=== PATIENT | female | born 1960 | race Caucasian/White ===

== ENCOUNTER → 2016-06-27 | Outpatient (CLI) | payer OTHER ==
[~2016-06-27] MED LIST: EFFSR75 PO; EST1 PO; FERR325T74 PO; IMT100 PO; LORA-741 PO; PRT40 PO; ZOLP10TA PO
--- NOTE | 2016-06-27 15:40 | MAMMOGRAPHY REPORT ---
BILATERAL DIGITAL SCREENING MAMMOGRAM TOMOSYNTHESIS WITH CAD: 06/27/2016 CLINICAL HISTORY: Routine screening. Patient has no complaints. TECHNIQUE: Breast tomosynthesis in addition to standard 2D mammography was performed. Current study was also evaluated with a Computer Aided Detection (CAD) system. COMPARISON: Comparison is made to exams dated: 11/23/2013 mammogram, 10/29/2012 mammogram, 10/29/2011 mammogram, 10/25/2010 mammogram - [facility], 09/07/2008, and 08/17/2007. BREAST COMPOSITION: The tissue of both breasts is heterogeneously dense, which may obscure small ma sses. FINDINGS: No suspicious masses, calcifications, or areas of architectural distortion are noted in e ither breast. There has been no significant interval change compared to prior exams. IMPRESSION: ACR BI-RADS CATEGORY 1: NEGATIVE There is no mammographic evidence of malignancy. A 1 year screening mammogram is recommended. The p atient will receive written notification of the results. Approximately 10% of breast cancers are not detected with mammography. A negative mammographic repor t should not delay biopsy if a clinically suggestive mass is present. Rosanne Hernandez M.D. ah/:06/27/2016 15:23:26 Cap Sizer: Yamilet SOL(Odilon)(Debbie), [facility] letter sent: Normal 1/2 BI-RADS Code: ACR BI-RADS Category 1: Negative
== END | disposition home or self-care (01) ==
LOC: C.MAMM 08:59
PROVIDERS: ATTEND Family Medicine
DX: Z12.31 Encounter for screening mammogram for malignant neoplasm of breast (principal)

== ENCOUNTER 2016-06-29 15:16 | Emergency (ER) | payer OTHER ==
[~2016-06-29] VITALS: Ht 172.7 cm; Wt 94.8 kg
[2016-06-29 15:22] VITALS: TEMP 36.7; Ht 172.7 cm; Wt 94.8 kg
[2016-06-29] MEDS ORDERED: SODIUM CHLORIDE 0.9% 1000ML 1,000 ML IV STA (16:10)
[2016-06-29] MEDS ORDERED: DiphenhydrAMINE HCL 50 MG/ML VIAL IV STA (16:10)
[2016-06-29] MEDS ORDERED: KETOROLAC TROMETHAMINE 30 MG/ML VIAL IV STA (16:10)
[2016-06-29] MEDS ORDERED: PROCHLORPERAZINE 5 MG/ML 2 ML VIAL IV STA (16:10)
--- NOTE | 2016-06-29 16:11 | EMERGENCY ROOM VISIT NOTE ---
History Report prepared by Hardy: Edward Cheema Under the Supervision of: Dr. Ang Dexter M.D. First contact with patient: 15:56 Chief Complaint: HEAD PAIN Stated Complaint: PULSE SENSATION IN HEAD, DIZZY, NAUSEA, WEAKNESS History of Present Illness The patient is a 55 year old female who presents to the Emergency Room with complaints of persistent head discomfort for the past 3 days. The patient describes the discomfort as pulses and shocks in her head. She notes that when she feels these weird sensations, they sometimes cause slight vision changes. The patient also complains of feeling sweaty, nauseous, vomiting and dizzy. The patient has a history of migraines, but she notes that she is not having a migraine right now. She does note a slight headache, but states that this headache feels different than her typical migraine. The patient notes that this is not the worst headache of her life. Source of History: patient Onset: 3 days ago Position: head Quality: other (pulses and shocks) Timing: other (persistent) Associated Symptoms: + diaphoresis, + headache, + nausea, + vomiting Note: Other associated symptoms: vision changes, dizzy Review of Systems See HPI for pertinent positives & negatives. A total of 10 systems reviewed and were otherwise negative. Past Medical & Surgical Medical Problems: (1) Cervicalgia (2) Cystic Kidney Disease, Unspecified (3) Depressive Disorder Nec (4) Insomnia, Unspecified Family History Cancer Social History Smoking Status: Never Smoker Alcohol Use: occasionally Marital Status: Housing Status: lives with family Occupation Status: employed Current/Historical Medications Scheduled Estradiol (Estradiol), 1 MG PO DAILY Pantoprazole (Pantoprazole Sodium), 40 MG PO BID Sumatriptan Succinate (Imitrex), 100 MG PO PRN Venlafaxine Hcl (Effexor Extended Rel), 75 MG PO DAILY Zolpidem Tartrate (Ambien), 10 MG PO HS Scheduled PRN Lorazepam (Ativan), 0.5 MG PO DAILY PRN for Anxiety Allergies Coded Allergies: No Known Allergies (Unverified , 06/29/16) Physical Exam Vital Signs Date Time Temp Pulse Resp B/P Pulse Ox O2 Delivery O2 Flow Rate FiO2 06/29/16 17:32 80 20 134/83 100 06/29/16 16:32 93 20 153/94 100 06/29/16 16:15 99 Room Air 06/29/16 16:14 99 Room Air 06/29/16 15:37 90 06/29/16 15:28 84 20 134/95 98 90 159/95 99 138/95 06/29/16 15:22 36.7 92 18 129/88 99 Room Air Physical Exam GENERAL: Patient is a healthy-appearing well-nourished HEAD: Normocephalic atraumatic EYES: Ocular movements intact pupils equal and react to light OROPHARYNX mucous membranes are moist no exudates present no erythema or edema present NECK: Supple no nuchal rigidity CHEST: Good equal expansion LUNGS: Clear and equal to auscultation CARDIAC: Normal S1 and S2 ABDOMEN: Soft nontender no guarding BACK: No CVA tenderness EXTREMITIES: No pain upon palpation normal muscle strength in all groups no clubbing cyanosis or edema NEURO: Patient is following commands is answering questions appropriately. Alert and oriented x3 Cranial Nerves 2-12 grossly intact. No evidence of encephalitis or meningitis on exam. Medical Decision & Procedures ER Provider Diagnostic Interpretation: CT results as stated below per my review and radiologist interpretation: CT SCAN OF THE BRAIN WITHOUT IV CONTRAST CLINICAL HISTORY: Headache. Dizziness. COMPARISON STUDY: CT of the brain dated 06/17/2014. TECHNIQUE: Unenhanced axial CT scan of the brain is performed from the vertex to the skull base. Automated dose control exposure was utilized. CT DOSE: 569.73 mGy.cm FINDINGS: Brain parenchyma: The brain parenchyma is normal in appearance. There is no hemorrhage, mass effect, or evidence of acute territorial ischemia by CT criteria. Dick-white matter is preserved. No extra-axial fluid collection is seen. Ventricles, sulci, cisterns: Normal in configuration. Intracranial vasculature: The visualized intracranial vasculature at the skull base is normal in appearance. Calvarium: Unremarkable. Sinuses and mastoids: The visualized paranasal sinuses are clear. There is evidence of previous right mastoid surgery. The mastoid air cells are well pneumatized. Orbits: The bony orbits are grossly intact. IMPRESSION: No acute intracranial abnormality. Electronically signed by: Alfred Gayle M.D. 06/29/2016 4:48 PM Dictated Date/Time: 06/29/2016 4:46 PM Laboratory Results 06/29/16 15:55 Red Blood Count 4.66, Mean Corpuscular Volume 90.1, Mean Corpuscular Hemoglobin 29.0, Mean Corpuscular Hemoglobin Concent 32.1, Mean Platelet Volume 10.3, Neutrophils (%) (Auto) 56.2, Lymphocytes (%) (Auto) 36.6, Monocytes (%) (Auto) 5.2, Eosinophils (%) (Auto) 1.3, Basophils (%) (Auto) 0.4, Neutrophils # (Auto) 4.49, Lymphocytes # (Auto) 2.91, Monocytes # (Auto) 0.41, Eosinophils # (Auto) 0.10, Basophils # (Auto) 0.03 06/29/16 15:55 Test 06/29/16 15:55 06/29/16 16:17 06/29/16 16:26 06/29/16 17:15 White Blood Count 7.96 K/uL (4.8-10.8) Red Blood Count 4.66 M/uL (4.2-5.4) Hemoglobin 13.5 g/dL (12.0-16.0) Hematocrit 42.0 % (37-47) Mean Corpuscular Volume 90.1 fL (80-100) Mean Corpuscular Hemoglobin 29.0 pg (25-34) Mean Corpuscular Hemoglobin Concent 32.1 g/dl (32-36) Platelet Count 282 K/uL (130-400) Mean Platelet Volume 10.3 fL (7.4-10.4) Neutrophils (%) (Auto) 56.2 % Lymphocytes (%) (Auto) 36.6 % Monocytes (%) (Auto) 5.2 % Eosinophils (%) (Auto) 1.3 % Basophils (%) (Auto) 0.4 % Neutrophils # (Auto) 4.49 K/uL (1.4-6.5) Lymphocytes # (Auto) 2.91 K/uL (1.2-3.4) Monocytes # (Auto) 0.41 K/uL (0.11-0.59) Eosinophils # (Auto) 0.10 K/uL (0-0.5) Basophils # (Auto) 0.03 K/uL (0-0.2) RDW Standard Deviation 42.1 fL (36.4-46.3) RDW Coefficient of Variation 12.8 % (11.5-14.5) Immature Granulocyte % (Auto) 0.3 % Immature Granulocyte # (Auto) 0.02 K/uL (0.00-0.02) Anion Gap 8.0 mmol/L (3-11) Est Creatinine Clear Calc Drug Dose 111.9 ml/min Estimated GFR () 114.6 Estimated GFR (Non- 98.9 BUN/Creatinine Ratio 20.5 (10-20) Calcium Level 9.0 mg/dl (8.5-10.1) Total Bilirubin 0.3 mg/dl (0.2-1) Direct Bilirubin mg/dl (0-0.2) Aspartate Amino Transf (AST/SGOT) 20 U/L (15-37) Alanine Aminotransferase (ALT/SGPT) 19 U/L (12-78) Alkaline Phosphatase 71 U/L (45-117) Total Protein 7.9 gm/dl (6.4-8.2) Albumin 4.0 gm/dl (3.4-5.0) Thyroid Stimulating Hormone (TSH) 1.830 uIu/ml (0.300-4.500) Chemistry Specimen Hemolysis Bedside Glucose 78 mg/dl (70-90) Lyme Disease IgG Antibody NEG (NEG) Lyme Disease IgM Antibody NEG (NEG) Urine Color YELLOW Urine Appearance CLEAR (CLEAR) Urine pH 7.0 (4.5-7.5) Urine Specific [place] 1.004 (1.000-1.030) Urine Protein NEG (NEG) Urine Glucose (UA) NEG (NEG) Urine Ketones NEG (NEG) Urine Occult Blood NEG (NEG) Urine Nitrite NEG (NEG) Urine Bilirubin NEG (NEG) Urine Urobilinogen NEG (NEG) Urine Leukocyte Esterase NEG (NEG) Labs reviewed by ED physician. Medications Administered Medications (Trade) Dose Ordered Sig/Manny Route Start Time Stop Time Status Last Admin Dose Admin Sodium Chloride (Nss 1000ml) 1,000 ml @ 999 mls/hr Q1H1M STAT IV 06/29/16 16:10 06/29/16 17:10 DC 06/29/16 16:18 999 MLS/HR Ketorolac Tromethamine (Toradol Inj) 30 mg NOW STAT IV 06/29/16 16:10 06/29/16 16:12 DC 06/29/16 16:24 30 MG Prochlorperazine Edisylate (Compazine Inj) 5 mg NOW STAT IV 06/29/16 16:10 06/29/16 16:12 DC 06/29/16 16:24 5 MG Diphenhydramine HCl (Benadryl Inj) 50 mg NOW STAT IV 06/29/16 16:10 06/29/16 16:12 DC 06/29/16 16:24 50 MG Dexamethasone Sodium Phosphate (Decadron Inj) 10 mg NOW ONCE IV 06/29/16 16:15 06/29/16 16:16 DC 06/29/16 16:22 10 MG ECG Indication: other Rate (beats per minute): 80 Rhythm: normal sinus Findings: no acute ischemic change, no ectopy ED Course 1600: Past medical records reviewed. The patient was evaluated in room B10. A complete history and physical examination was performed. 1610: Ordered Benadryl Inj 50 mg IV, Compazine Inj 5 mg IV, Toradol Inj 30 mg IV , NSS 1000 ml @ 999 mls/hr IV. 1615: Ordered Decadron Inj 10 mg IV. Medical Decision Differential diagnosis: Etiologies such as migraine headache, meningitis, sinusitis, CO exposure, ICH, SAH, infection, tumor, headache, sinus thrombosis, arterial dissection, as well as others were entertained. This is a 55-year-old female who presents emergency department complaining of pulsing sensation in her head. She has no evidence of meningitis encephalitis on examination. The patient has a history of migraines in the past however this does not feel anything like a migraine. Patient reports she has been under stress for the past 3 days and just wants to make sure everything is okay. Due to the nature of her migraines and never having any imaging of her head performed she was sent for CAT scan of the head. This did not show any evidence of acute process. She also has a normal CBC normal renal profile normal liver profile normal thyroid. She has a normal EKG. Based on these findings the patient was given a migraine cocktail which included normal saline bolus, Benadryl, Toradol, Compazine, Decadron. Repeat examination revealed improvement patient's symptoms. I do believe that the patient is well enough to be discharged home for follow-up with her primary care physician. Patient was in agreement with the treatment plan. Impression Primary Impression: Migraine Scribe Attestation The scribe's documentation has been prepared under my direction and personally reviewed by me in its entirety. I confirm that the note above accurately reflects all work, treatment, procedures, and medical decision making performed by me. Departure Information Dispostion Home / Self-Care Referrals Oli Nicole M.D.([facility]) (PCP) Patient Instructions My [facility] Problem Qualifiers Primary Impression: Migraine Migraine type: without aura Status migrainosus presence: without status migrainosus Intractability: not intractable Qualified Codes: G43.009 - Migraine without aura, not intractable, without status migrainosus
[2016-06-29 16:15] VITALS: O2SAT 99
[2016-06-29] MEDS ORDERED: DEXAMETHASONE SOD INJ 10 MG/ML VIAL IV ONE (16:15)
[2016-06-29 16:19] LABS: BASO % 0.4 %; BASO ABS # 0.03 K/uL (0-0.2); COMPLETE YES; EOS % 1.3 %; IG% 0.3 %; LYMPH % 36.6 %; LYMPH ABS # 2.91 K/uL (1.2-3.4); MEAN CELL VOLUME 90.1 fL (80-100); MEAN CORPUSCULAR HGB CONC 32.1 g/dl (32-36); MEAN PLATELET VOLUME 10.3 fL (7.4-10.4); MONO % 5.2 %; NEUT % 56.2 %; PLATELET COUNT 282 K/uL (130-400); RED BLOOD COUNT 4.66 M/uL (4.2-5.4); WHITE BLOOD COUNT 7.96 K/uL (4.8-10.8)
[2016-06-29 16:48] LABS: ALKALINE PHOSPHATASE 71 U/L (45-117); ALT/SGPT 19 U/L (12-78); AST/SGOT 20 U/L (15-37); BLOOD UREA NITROGEN 14 mg/dl (7-18); BUN/CREATININE RATIO 20.5 (10-20); CARBON DIOXIDE 30 mmol/L (21-32); CHLORIDE 106 mmol/L (98-107); GLUCOSE 102 mg/dl (70-99); POTASSIUM 4.3 mmol/L (3.5-5.1); SODIUM 144 mmol/L (136-145)
--- NOTE | 2016-06-29 16:49 | DIAGNOSTIC IMAGING REPORT ---
CT SCAN OF THE BRAIN WITHOUT IV CONTRAST CLINICAL HISTORY: Headache. Dizziness. COMPARISON STUDY: CT of the brain dated 06/17/2014. TECHNIQUE: Unenhanced axial CT scan of the brain is performed from the vertex to the skull base. Automated dose control exposure was utilized. CT DOSE: 569.73 mGy.cm FINDINGS: Brain parenchyma: The brain parenchyma is normal in appearance. There is no hemorrhage, mass effect, or evidence of acute territorial ischemia by CT criteria. Dick-white matter is preserved. No extra-axial fluid collection is seen. Ventricles, sulci, cisterns: Normal in configuration. Intracranial vasculature: The visualized intracranial vasculature at the skull base is normal in appearance. Calvarium: Unremarkable. Sinuses and mastoids: The visualized paranasal sinuses are clear. There is evidence of previous right mastoid surgery. The mastoid air cells are well pneumatized. Orbits: The bony orbits are grossly intact. IMPRESSION: No acute intracranial abnormality. Electronically signed by: Alfred Gayle M.D. 06/29/2016 4:48 PM Dictated Date/Time: 06/29/2016 4:46 PM
[2016-06-29 17:25] LABS: URINE APPEARANCE CLEAR (CLEAR); URINE BILIRUBIN NEG (NEG); URINE COLOR YELLOW; URINE NITRITE NEG (NEG); URINE SPECIFIC GRAVITY 1.004 (1.000-1.030); UROBILINOGEN NEG (NEG)
[2016-06-29 17:26] LABS: LYME DISEASE AB IGG NEG (NEG); LYME DISEASE AB IGM NEG (NEG)
[2016-06-29 17:32] VITALS: BP 134/83; PULSE 80; O2SAT 100
[2016-06-29 17:37] LABS: MANUAL MICROSCOPIC REQUIRED? NO; REVIEW REQ? NO
== END 2016-06-29 17:48 | disposition home or self-care (01) ==
LOC: C.EDB 15:18
DX: G43.009 Migraine without aura, not intractable, without status migrainosus (principal); Q61.9 Cystic kidney disease, unspecified; F32.9 Major depressive disorder, single episode, unspecified; G47.00 Insomnia, unspecified; Z79.899 Other long term (current) drug therapy